=== PATIENT | female | born 1995 | race Caucasian/White ===

== ENCOUNTER 2020-11-24 07:26 | Outpatient (CLI) | payer OTHER ==
[~2020-11-24 07:26] MED LIST: NORCO 5-325 TA1 EACH PO
[2020-11-24 08:17] LABS: HEMOGLOBIN 8.8 gm/dl (12.3-15.3); RED BLOOD COUNT 3.15 M/UL (4.00-5.10); WHITE BLOOD COUNT 12.6 K/UL (4.5-11.0)
== END 2020-11-24 13:12 | disposition other institution (70) ==
LOC: GENOP 07:26
PROVIDERS: Obstetrics & Gynecology
DX: O44.03 Complete placenta previa NOS or without hemorrhage, third trimester (principal); O99.891 Other specified diseases and conditions complicating pregnancy; N93.9 Abnormal uterine and vaginal bleeding, unspecified; Z3A.32 32 weeks gestation of pregnancy
CPT/HCPCS: 36415; 83518; 85025; 85384; 85610; 85730; 96361; 96366; 96367; J0290; J0456; J0702; J3475; J7030